=== PATIENT | male | born 1940 | race Caucasian/White ===

== ENCOUNTER → 2016-11-28 | Outpatient (CLI) | payer MEDICARE, BC ==
[~2016-11-28] MED LIST: ACETYLCYSTE; ALTACE10 MG PO; ASPIRIN81 M1 PO; FUROSEMIDE40 MG PO; LANTUS100 U/ML SQ; METOPROLOL SUCC25 MG PO; PLAVIX PO; ZOCOR20 MG PO
--- NOTE | ~2016-11-28 | US37 ---
[facility] A Service of [facility] & [facility] RADIOLOGY TEXT RESULTS PATIENT: KIERA HERNANDEZ LOCATION: CNIV : 39 UNIT #: [id number] AGE: [address]: MELCHOR GONZALEZ APRN SEX: M ORDER DR: [id number] [facility] [address] [place], [place] [address] [id number] O MR#: [id number] Acc #: [id number] NAME: KIERA HERNANDEZ : 1940 SEX: M STUDY DATE/TIME: 11/28/2016 9:30 UNIT: CNIV ROOM: STUDY DESCRIPTION: US Carotid W/Doppler Bilateral Attending Physician: Melchor Gonzalez Aprn Referring Physician: Melchor Gonzalez Aprn Ordering Physician: Melchor Gonzalez Aprn Primary Care Physician: Jamie Tom M.D. MEDICAL IMAGING REPORT This report is preliminary unless electronic signature is present EXAM Carotid duplex scan DATE OF EXAMINATION: 11/28/16 HISTORY Carotid stenosis. FINDINGS The right common carotid artery has a small amount of heterogeneous plaque which extends up into the proximal internal and external carotid artery, Peak systolic velocity in the distal right internal carotid artery is 86 cm/sec with an end diastolic velocity of 22 cm/sec. The ICA:CCA ratio on the right is 1.54. Peak systolic velocity in the right external carotid artery is 62 cm/sec. The right vertebral artery is patent with antegrade flow. The left common carotid artery has a small amount of heterogeneous plaque which extends up into the proximal internal and external carotid arteries. Peak systolic velocity in the distal left internal carotid artery is 72 cm/sec with an end diastolic velocity of 21 cm/sec. The ICA:CCA ratio on the left is 1.26. Peak systolic velocity in the left external carotid artery is 57 cm/sec. The left vertebral artery is patent with antegrade flow. IMPRESSION Small amount of plaque, but no significant stenosis (less than 50%) in the internal and external carotid arteries bilaterally. Patent vertebral arteries bilaterally with antegrade flow. Dictated by... Kane Esquivel M.D. [facility] A Service of [facility] RADIOLOGY TEXT RESULTS PATIENT: KIERA HERNANDEZ LOCATION: CNIV : 39 UNIT #: [id number] AGE: [address]: MELCHOR GONZALEZ APRN SEX: M ORDER DR: THIS IS AN ELECTRONICALLY VERIFIED REPORT Kane Esquivel M.D. at 11/29/2016 8:14 AM Lexi TD: 11/28/2016 13:20 JOB #: [id number] MEDICAL IMAGING REPORT Page 1 of 1 COPY
--- NOTE | ~2016-11-28 | US136 ---
[facility] A Service of [facility] RADIOLOGY TEXT RESULTS PATIENT: KIERA HERNANDEZ LOCATION: CNIV : 39 UNIT #: [id number] AGE: [address]: MELCHOR GONZALEZ APRN SEX: M ORDER DR: [id number] [facility] [address] [place], [place] [address] [id number] O MR#: [id number] Acc #: [id number] NAME: KIERA HERNANDEZ : 1940 SEX: M STUDY DATE/TIME: 11/28/2016 8:45 UNIT: CNIV ROOM: STUDY DESCRIPTION: US U/L Ext Art Study [facility] Bil Attending Physician: Melchor Gonzalez Aprn Referring Physician: Melchor Gonzalez Aprn Ordering Physician: Melchor Gonzalez Aprn Primary Care Physician: Jamie Tom M.D. MEDICAL IMAGING REPORT This report is preliminary unless electronic signature is present EXAM Ankle-brachial indices, 11/28/2016. HISTORY Peripheral artery disease. FINDINGS The right brachial pressure is 136, and the left brachial pressure is 139. The right dorsalis pedis pressure is 122, posterior tibial 140, and toe 105, for an ankle-brachial index of 1.01. The left dorsalis pedis pressure is 137, posterior tibial 134, and toe 96, for an ankle-brachial index of 0.99. Doppler wave form analysis indicates a biphasic signal in the posterior tibial and dorsalis pedis arteries bilaterally. Pulse volume recording tracings demonstrate a good amplitude signal at the ankle and digital level on both sides. IMPRESSION Normal perfusion to both legs. Ankle-brachial index is 1.01 on the right and 0.99 on the left. Dictated by... Kane Esquivel M.D. THIS IS AN ELECTRONICALLY VERIFIED REPORT Kane Esquivel M.D. at 11/29/2016 8:14 AM MICHELLE/kennedy [facility] A Service [facility] RADIOLOGY TEXT RESULTS PATIENT: KIERA HERNANDEZ LOCATION: CNIV : 39 UNIT #: [id number] AGE: [address]: MELCHOR GONZALEZ APRN SEX: M ORDER DR: TD: 11/28/2016 13:26 JOB #: [id number] MEDICAL IMAGING REPORT Page 1 of 1 COPY
== END | disposition home or self-care (01) ==
LOC: CNIV 08:22
DX: I65.23 Occlusion and stenosis of bilateral carotid arteries (principal); I73.9 Peripheral vascular disease, unspecified
CPT/HCPCS: 93880; 93922